=== PATIENT | male | born 1965 | race Caucasian/White ===

== ENCOUNTER 2023-11-28 13:26 | Outpatient (AMB) | payer BC, SELFPAY ==
[2023-11-28 13:40] VITALS: BP 120/80; PULSE 88; TEMP 36.4; O2SAT 98; BMI 36.0
--- NOTE | 2023-11-28 13:40 | AM.OFFWIN_ITS ---
Intake Vital Signs 3 11/28/23 13:40 Height 6 ft 1 in Weight 273 lb BMI 36.0 BP 120/80 Blood Pressure Location Lt brachial Position Sitting Pulse 88 Pulse Source Pulse Oximeter Temp 97.6 F Temp Source Temporal Artery Scan Pulse Oximetry (%) 98 Oxygen Delivery Method Room Air Intake Visit Reasons: EST/sore on right leg (lobby) Intake Note: pt is here today for sore on rt leg started 1month ago Patient Tobacco Use Status: Never used Tobacco Allergies No Known Allergies Allergy (Verified 11/28/23 13:43) Medication List - Last Reconciled 11/28/23 by Meredith Maya MD Do you need a note to return to daycare/school/sports/work: No HPI EST/sore on right leg (lobby) 2 HPI0 Details 58-year-old gentleman came in today to b e evaluated for sore right leg which is been there for past 2 months Patient says that he was too busy working to his that His asked him to be evaluated so he came in Patient says that he has a history of basal cell carcinoma back of neck which was removed and he has a surgical training specialist in [place] We discussed the biopsy for that sore which is not healing, close to that sore there is slight muscle atrophy and a swelling as well There is no pain with pressure over the swelling, there is no redness or warmth to it Sore is by yd about size of nickel Patient says that he will try to [place] to see his surgical training specialist as he can get in quickly He does have a primary care provider in [place] that he has not seen in years Patient also wanted to talk about pain left mid back off and on Patient says that at times it feels like a lump and at times it feels like numbness Upon further questioning he told me that years ago he had a very heavy object fell on his head Which shattered his cervical spine and also his lumbar spine He had to go through surgeries for that. I feel that his symptoms of feeling not and numbness is most likely secondary to that incident For now I have prescribed cyclobenzaprine 10 mg to be taken as needed if he started having feeling on not in that area currently patient does not have any symptoms. PFSH Social History Patient Tobacco Use Status: Never used Tobacco Review of Systems Const Denies chills and Denies fever(s) ENT Denies epistaxis and Denies nasal discharge Card Denies chest pain Resp Denies chest congestion, Denies cough and Denies hemoptysis GI Denies diarrhea and Denies nausea Skin/Breast Denies rash Neuro Reports no additional complaints Psych Reports no additional complaints Endo Reports no additional complaints Physical Exam Vital Signs: Last Vital Signs Temp 97.6 F 11/28/23 13:40 Pulse 88 11/28/23 13:40 BP 120/80 11/28/23 13:40 Pulse Ox 98 11/28/23 13:40 Oxygen Delivery Method Room Air 11/28/23 13:40 BMI result Body Mass Index 36.0 Const General: cooperative, comfortable and no acute distress Orientation/consciousness: patient oriented x3 HEENT Head: Yes normocephalic Eyes General: appearance normal, both eyes and all related structures Neck Other: Supple Neck: Yes supple Resp Effort & Inspection: normal respiratory effort, no cough and no stridor Skin General skin exam: turgor normal Neuro Other: Motor sensory intact General: patient oriented x3, tone normal and moves all extremities Extrem Other: No lower extremity swelling. Right lower extremity: no edema Left lower extremity: no edema Ankle/foot/toe images: 2 1. Superficial sores size of nickel 2. Soft palpable swelling without any redness or pain Psych Other: Normal effect, speech clear Assessment & Plan Assessment & Plan (1) Leg sore: Code(s): L98.9 - Disorder of the skin and subcutaneous tissue, unspecified (2) Thoracic radiculitis: Code(s): M54.14 - Radiculopathy, thoracic region Plan 58-year-old gentleman came in today to be evaluated for sore right leg which is been there for past 2 months Patient says that he was too busy working to his that His asked him to be evaluated so he came in Patient says that he has a history of basal cell carcinoma back of neck which was removed and he has a surgical training specialist in [place] We discussed the biopsy for that sore which is not healing, close to that sore there is slight muscle atrophy and a swelling as well There is no pain with pressure over the swelling, there is no redness or warmth to it Sore is by yd about size of nickel Patient says that he will try to [place] to see his surgical training specialist as he can get in quickly He does have a primary care provider in [place] that he has not seen in years Patient also wanted to talk about pain left mid back off and on Patient says that at times it feels like a lump and at times it feels like numbness Upon further questioning he told me that years ago he had a very heavy object fell on his head Which shattered his cervical spine and also his lumbar spine He had to go through surgeries for that. I feel that his symptoms of feeling not and numbness is most likely secondary to that incident For now I have prescribed cyclobenzaprine 10 mg to be taken as needed if he started having feeling on not in that area currently patient does not have any symptoms. Medications: New 2 cyclobenzaprine 10 mg PO BEDTIME PRN 30 tabs 0RF muscle spasm Coding Level of Care Code Est Pt Level 3 (80683) Diagnoses Leg sore L98.9 Thoracic radiculitis M54.14
== END 2023-11-28 14:26 | disposition home or self-care (01) ==
PROVIDERS: PCP Family Medicine; Visit Provider Internal Medicine
DX: L98.9 Disorder of the skin and subcutaneous tissue, unspecified (principal); M54.14 Radiculopathy, thoracic region
CPT/HCPCS: 99213

== ENCOUNTER 2024-10-24 12:58 | Outpatient (REF) | payer BC, SELFPAY | END 2024-10-24 12:59 | disposition home or self-care (01) | LOC: HO.LAB 12:58 | PROVIDERS: PCP Family Medicine; Visit Provider Physician Assistant Medical | DX: S60.459A Superficial foreign body of unspecified finger, initial encounter (principal) | CPT/HCPCS: 87070; 87205 ==

== ENCOUNTER 2024-10-24 12:58 | Outpatient (AMB) | payer BC, SELFPAY ==
[2024-10-24 13:14] VITALS: BP 118/80; PULSE 83; O2SAT 96
--- NOTE | 2024-10-24 13:14 | AM.OFFWIN_ITS ---
Intake Vital Signs 10/24/24 13:14 Height 6 ft 1 in BP 118/80 Blood Pressure Location Lt brachial Position Sitting Pulse 83 Pulse Source Pulse Oximeter Pulse Oximetry (%) 96 Intake Visit Reasons: EP RT ring finger sliver Patient Tobacco Use Status: Never used Tobacco Accompanied by: Self / Same As Patient Allergies No Known Allergies Allergy (Verified 10/24/24 13:14) Do you need a note to return to daycare/school/sports/work: No HPI EP RT ring finger sliver HPI Details Patient is a 58-year-old male who comes to the walk-in clinic complaining of retained wooden splinter in his right ring finger from about 4-5 days ago. He reports that he tried to remove the splinter by sticking a needle into the open end of the punctured area, but was not able to push the splinter through to the other side. He has been washing it regularly and putting hydrogen peroxide on the area, but it is getting swollen and painful. He denies fever or chills, nausea vomiting or diarrhea, weakness or dizziness, malaise or myalgias, or other significant associated symptoms. [facility] Social History Patient Tobacco Use Status: Never used Tobacco Review of Systems Const All systems reviewed & are unremarkable except as noted in HPI and below Physical Exam Vital Signs: Last Vital Signs Pulse 83 10/24/24 13:14 BP 118/80 10/24/24 13:14 Pulse Ox 96 10/24/24 13:14 Skin Other: Right 4th digit has visible puncture to the ulnar side midway between the PIP and PIP. On the radial aspect, there is a partial puncture wound with an overlying eschar. There is a palpable mass to the dorsal aspect of the digit, midway between the 2 puncture wounds. That section of the finger is edematous, warm and erythematous. There is some mild fluctuance with palpation. No streaking. The digit is neurovascularly intact distally Assessment & Plan Assessment & Plan (1) Wood splinter in finger: Code(s): S60.459A - Superficial foreign body of unspecified finger, initial encounter Plan: Patient is a 58-year-old male who comes to the walk-in clinic complaining of retained wooden splinter in his right ring finger from about 4-5 days ago. He reports that he tried to remove the splinter by sticking a needle into the open and of the punctured area, but was not able to push the splinter through to the other side. He has been washing it regularly and putting hydrogen peroxide on the area, but it is getting swollen and painful. I was able to successfully anesthetize the right ring finger with a digital block using 1% xylocaine. Using a 11. Blade, I cut a cruciate to the puncture but partially still closed exit area of the wooden splinter and using forceps was able to extract an approximately 1 cm long wooden splinter. There was minimal amount of pustulant drainage from the wound, which was swabbed for culture and is pending microscopy and culture and sensitivity testing. I wrote him for a 10 day course of doxycycline. He knows to have the wound looked at if it becomes increasingly painful, swollen, red, or continues to have pustulant or bloody discharge. He also will monitor for systemic symptoms of infection. He is not a patient at this office for PCP, so he will either follow up with his PCP, or he can come back to the walk-in as needed, or go to the emergency room for worrisome symptoms. Orders: Orders Routine Culture w Gram Stain 10/24/24 T14.8XXA - Other injury of unspecified body region, initial encounter Medications: New doxycycline monohydrate 100 mg PO BID 20 caps 0RF cellulitis 10 days Coding Level of Care Code Est Pt Level 4 (40390) Diagnoses Wood splinter in finger S60.459A
--- OUTSIDE RECORDS SUMMARY | 2024-10-24 14:48 | XMS_ITS ---
Author Name [facility] Organization Unknown Care Team Organization Name Specialty Phone Email Start Date End Da te [employer] 07/24/2023
== END 2024-10-24 14:52 | disposition home or self-care (01) ==
PROVIDERS: PCP Family Medicine; Visit Provider Physician Assistant Medical
DX: S60.459A Superficial foreign body of unspecified finger, initial encounter (principal)